=== PATIENT | female | born 1950 | race Two or more races ===

== ENCOUNTER 2019-04-03 10:18 | Day surgery (SDC) | payer OTHER ==
[~2019-04-03 10:18] MED LIST: ACETAMINOPHEN ES 500 MG TABLET ONE
[2019-04-03] MEDS ORDERED: MIDAZOLAM HCL 2 MG/2ML VIAL ONE (12:46)
[2019-04-03] MEDS ORDERED: FENTANYL PF 100MCG/2ML AMPUL ONE (12:46)
[2019-04-03] MEDS ORDERED: FAMOTIDINE/PF INJ 20 MG/2 ML VIAL IV ONE (12:47)
[2019-04-03] MEDS ORDERED: BUPIVACAINE 0.25% 75 MG/30 ML VIAL ONE (13:03)
[2019-04-03] MEDS ORDERED: HYDROCODONE/APAP 10/325MG 1 EA TABLET ONE (14:30)
== END 2019-04-03 15:15 | disposition home or self-care (01) ==
LOC: DS 10:18
PROVIDERS: ATTEND Orthopaedic Surgery
DX: M65.312 Trigger thumb, left thumb (principal); E78.5 Hyperlipidemia, unspecified; D64.9 Anemia, unspecified; Z81.1 Family history of alcohol abuse and dependence; Z80.51 Family history of malignant neoplasm of kidney; Z80.52 Family history of malignant neoplasm of bladder; Z79.899 Other long term (current) drug therapy
CPT/HCPCS: 26055; 26145; J0690; J1885; J2405; J2704; J3010; J3490 ×3; J2250